=== PATIENT | male | born 1975 | race African-American/Black ===

== ENCOUNTER 2017-02-11 09:23 | Emergency (ER) | payer OTHER ==
[~2017-02-11] VITALS: Ht 172.7 cm; Wt 105.0 kg
[~2017-02-11 09:23] MED LIST: IBUP800 PO; PENI500T PO
[2017-02-11 09:25] VITALS: BP 150/90; PULSE 72; RESP 20; TEMP 97.5; O2SAT 97
--- NOTE | 2017-02-11 09:33 | PD ---
Physical Exam Date Seen by Provider: Feb 11, 2017 Time Seen by Provider: 09:30 Narrative Pt is a 41 year old male presenting to the ED with c/o toothache. Pt states its his left upper tooth. This has been ongoing for 1 month. Pt has not been evaluated by a dentist. Pt states the tooth is broken and chipped. He denies any fevers. He states it is aching, and the pain is a 6/10. Pt awaiting bed placement. VSS. Data Data Last Documented VS Vital Signs Date Time Temp Pulse Resp B/P Pulse Ox O2 Delivery O2 Flow Rate FiO2 02/11/17 09:25 97.5 72 20 150/[address] [facility] Supervised Visit with PASCUAL: Rocio Barboza Feb 11, 2017 09:33
== END 2017-02-11 10:32 | disposition left against medical advice (07) ==
LOC: NED 09:23
DX: K03.81 Cracked tooth (principal); Z53.21 Procedure and treatment not carried out due to patient leaving prior to being seen by health care provider
CPT/HCPCS: 99282

== ENCOUNTER 2017-10-17 08:29 | Emergency (ER) | payer OTHER ==
[2017-10-17 08:30] VITALS: BP 144/83; PULSE 80; RESP 18; TEMP 98.6; O2SAT 98
[2017-10-17] MEDS ORDERED: POLY10O RIGHT EYE (09:00)
--- NOTE | 2017-10-17 09:01 | PD ---
HPI Chief Complaint: Eye Problems/Injury Time Seen by Provider: 08:58 Travel History International Travel<30 days: No Contact w/Intl Traveler<30days: No Traveled to known affect area: No History of Present Illness HPI 42-year-old male presents to the emergency Department with complaint of right upper eyelid pain, swelling, redness 2 days. Reports waking up in the mornings with his eyes crusted shut. Reports purulent drainage from his right eye throughout the day. Denies fever, vomiting. Denies change in vision. Denies eye trauma. Has not taken any medications or tried any treatments to alleviate symptoms. Symptoms are mild in severity. No known relieving or aggravating factors. No one else with similar symptoms. No known allergies. Has no other medical complaints. No other modifying factors or associated signs and symptoms. PFSH Past Medical History Respiratory: Yes (asthma) Social History Alcohol Use: No Tobacco Use: Yes (1 ppd) Substance Use: No Allergies-Medications (Allergen,Severity, Reaction): Coded Allergies: No Known Allergies (Unverified , 07/18/16) Reported Meds & Prescriptions Reported Meds & Active Scripts Active Polytrim Opth Drops (Polymyxin/Trimethoprim Sulfate) 10,000-0.1 Unit/Ml-% Soln 2 Drop RIGHT EYE Q6HR 7 Days Review of Systems Except as stated in HPI: all other systems reviewed are Neg Physical Exam Narrative GENERAL: Well-nourished, well-developed male patient, in no acute distress SKIN: Warm and dry. HEAD: Atraumatic. Normocephalic. EYES: Pupils equal and round at 3 mm with brisk reaction. PERRLA. EOMI. Right lid eversion with no foreign body noted. Right eye without scleral erythema; upper ey lid with minimal edema and stye palpated to the medial aspect ; with erythema. No orbital tenderness, erythema or cellulitis. Right eye without photophobia. No consensual photophobia. No scleral icterus. Right eye purulent drainage noted. ENT: Mucosa pink and moist. Airway patent. NECK: Trachea midline. CARDIOVASCULAR: Regular rate. RESPIRATORY: No accessory muscle use. GASTROINTESTINAL: Rounded. NEUROLOGICAL: Awake and alert. Oriented 3. No obvious cranial nerve deficits. Motor grossly within normal limits. Normal speech. PSYCHIATRIC: Appropriate mood and affect; insight and judgment normal. Data Data Last Documented VS Vital Signs Date Time Temp Pulse Resp B/P (MAP) Pulse Ox O2 Delivery O2 Flow Rate FiO2 10/17/17 09:14 10/17/17 08:30 98.6 80 18 98 Orders Orders Ed Discharge Order (10/17/17 09:03) MDM Medical Decision Making Medical Screen Exam Complete: Yes Emergency Medical Condition: Yes Medical Record Reviewed: Yes Differential Diagnosis Stye, conjunctivitis, chalazion Narrative Course 42-year-old male physical exam consistent with a sternal stye to the right upper eyelid. She is afebrile and nontoxic-appearing. Denies fever, vomiting. Polytrim eye drops prescribed for home. Instructed patient to do warm compresses. Instructed patient to follow up with primary care provider. Patient verbalizes understanding and agreement with treatment plan. Patient is medically cleared and stable for discharge. Discussed reasons to return to the emergency department. Patient agrees with treatment plan. The patients vital signs are stable and the patient is stable for outpatient follow-up and treatment. Patient discharged home, stable and in no acute distress. Diagnosis Primary Impression: Hordeolum externum of right upper eyelid Referrals: Primary Care Physician Patient Instructions: General Instructions, Korey (ED) Additional Instructions: Do not try to pop the sty or squeeze pus from the sty Clean-air eyelid gently with mild soap and water Warm compresses to affected eye 2-3 times daily to encourage the sty to drain on its own Keep your eye clean; don't wear makeup Do not wear contact lenses; go without contact lenses until this diagnosis away Follow-up with ophthalmology as needed Follow-up with primary care provider Return to the emergency department immediately with worsening of symptoms Med/Other Pt SpecificInfo: Prescription(s) given Scripts Polymyxin B-Trimethoprim Opth Drops (Polytrim Opth Drops) 10,000-0.1 Unit/Ml-% Soln 2 DROP RIGHT EYE Q6HR for Mgmt Bacterial Infection for 7 Days, #1 BOTTLE 0 Refills Prov: Destinee Leblanc 10/17/17 Disposition: 01 DISCHARGE HOME Condition: Stable Destinee Leblanc Oct 17, 2017 09:01
== END 2017-10-17 09:14 | disposition home or self-care (01) ==
LOC: NEPD 08:29
DX: H00.011 Hordeolum externum right upper eyelid (principal); J45.909 Unspecified asthma, uncomplicated; F17.200 Nicotine dependence, unspecified, uncomplicated
CPT/HCPCS: 99283

== ENCOUNTER 2018-03-01 08:30 | Emergency (ER) | payer OTHER ==
[~2018-03-01] VITALS: Ht 172.7 cm; Wt 110.0 kg
[~2018-03-01 08:30] MED LIST changes: -IBUP800 PO; -PENI500T PO; +POLY10O RIGHT EYE
[2018-03-01 08:37] VITALS: BP 153/102; PULSE 86; RESP 16; TEMP 98.9; O2SAT 97
[2018-03-01] MEDS ORDERED: IBUPROFEN 800 MG TAB PO ONE (09:15)
[2018-03-01] MEDS ORDERED: METHOCARBAMOL 500 MG TAB PO ONE (09:15)
[2018-03-01] MEDS ORDERED: ROBA500T PO (09:16)
[2018-03-01] MEDS ORDERED: IBUP1TAB7 PO (09:16)
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
[2018-03-01 10:01] VITALS: BP 147/88
== END 2018-03-01 09:55 | disposition home or self-care (01) ==
LOC: NEPD 08:30
DX: S16.1XXA Strain of muscle, fascia and tendon at neck level, initial encounter (principal); S39.012A Strain of muscle, fascia and tendon of lower back, initial encounter; V89.2XXA Person injured in unspecified motor-vehicle accident, traffic, initial encounter
CPT/HCPCS: 99283